=== PATIENT | male | born 1990 | race Caucasian/White ===

== ENCOUNTER 2020-05-08 12:14 | Emergency (ER) | payer MEDICAID ==
[~2020-05-08] VITALS: Ht 170.2 cm; Wt 99.8 kg
[~2020-05-08 12:14] MED LIST: TYLENOL; [UNRECOGNIZED DRUG - REMARK]
[2020-05-08 12:30] VITALS: BP 152/101
[2020-05-08] MEDS ORDERED: ACETAMINOPHEN 325 MG TAB PO ONE (12:30)
--- NOTE | 2020-05-08 12:35 | NUR ---
PT C/O COUGH WITH BLOODY SPUTUM, FEVER, FATIGUE, MUSCLE ACHES, NIGHT SWEATS, AND RASH ON THE CHEST FOR 8 DAYS. DENIES N/V/D. PT WAS DIAGNOSED POSITIVE COVID 8 DAYS AGO BY TESTING [facility]. NOT ON ANY ABX. PMH: LIVER PROBLEMS (PT CANNOT RECALL)
[2020-05-08 12:57] LABS: BASOPHILS % (AUTO) 0.7 % (0.0-2.0); EOSINOPHILS # (AUTO) 0.1 K/uL (0-0.4); EOSINOPHILS % (AUTO) 1.2 % (0.0-4.0); HEMOGLOBIN 18.2 g/dL (12.0-18.0); LYMPHOCYTES # (AUTO) 1.4 K/uL (2.0-11.5); LYMPHOCYTES % (AUTO) 33.1 % (20.5-51.1); MEAN CORPUSCULAR HEMOGLOBIN 31 pg (27-31); MEAN CORPUSCULAR HGB CONC 34 g/dL (33-37); MEAN CORPUSCULAR VOLUME 89.1 fL (80-94); MONOCYTES # (AUTO) 0.6 K/uL (0.8-1.0); MONOCYTES % (AUTO) 12.9 % (1.7-9.3); NEUTROPHILS # (AUTO) 2.3 K/uL (1.8-7.7); NEUTROPHILS % (AUTO) 52.1 % (42.2-75.2); PLATELET COUNT (AUTO) 161 K/uL (140-450); RED BLOOD CELL COUNT(AUTO) 5.95 MIL/uL (4.20-6.10); RED CELL DISTRIBUTION WIDTH 13.1 % (11.6-13.7); WHITE BLOOD COUNT (AUTO) 4.3 K/uL (4.8-10.8)
[2020-05-08 13:28] LABS: ALBUMIN 4.3 g/dL (3.4-5.0); ANION GAP 13.9 (8-16); CREATININE 1.2 mg/dL (0.6-1.3); POTASSIUM 3.9 mmol/L (3.5-5.1); TOTAL BILIRUBIN 0.9 mg/dL (0.0-1.0)
[2020-05-08 13:39] LABS: PROTHROMBIN TIME 10.2 secs (10.8-13.4)
[2020-05-08 14:11] VITALS: BP 128/85
--- NOTE | 2020-05-08 14:11 | NUR ---
Patient discharged with v/s stable. Written and verbal after care instructions given and explained. Patient verbalized understanding. Ambulatory with steady gait. All questions addressed prior to discharge. Advised to follow up with PMD.
== END 2020-05-08 14:00 | disposition home or self-care (01) ==
LOC: MED 12:14
DX: U07.1 COVID-19 (principal); R04.2 Hemoptysis; Z79.899 Other long term (current) drug therapy
CPT/HCPCS: 36415; 71045; 80053; 85025; 85610; 99284

== ENCOUNTER 2020-05-27 10:14 | Emergency (ER) | payer MEDICAID ==
[~2020-05-27] VITALS: Ht 170.2 cm; Wt 104.3 kg
[2020-05-27 10:43] VITALS: BP 134/101
--- NOTE | 2020-05-27 11:32 | NUR ---
30 Y/O MALE PRESENTS WITH SORE THROAT X 4DAYS WITH NASAL CONGESTIONS. TESTED NEG FOR COVID 05/16. WAS POSITIVE ON 05/03. DENIES ANY CHEST PAIN/SOB. NO RESPIRATORY DISTRESS NOTED AT THIS TIME. AAOX4, AMBULATORY WITH STEADY GAIT. VSS MED HX: DENIES
[2020-05-27 12:13] VITALS: BP 134/101
--- NOTE | 2020-05-27 12:13 | NUR ---
Patient discharged with v/s stable. Written and verbal after care instructions given and explained. Patient alert, oriented and verbalized understanding of instructions. Ambulatory with steady gait. All questions addressed prior to discharge. ID band removed. Patient advised to follow up with PMD. Rx of PCN VK 500mg, Naprosyn 500mg, Chloraseptic spray given. Patient educated on indication of medication including possible reaction and side effects. Opportunity to ask questions provided and answered.
== END 2020-05-27 12:13 | disposition home or self-care (01) ==
LOC: MED 10:14
DX: J03.90 Acute tonsillitis, unspecified (principal); Z79.899 Other long term (current) drug therapy
CPT/HCPCS: 99283